=== PATIENT | male | born 1950 | race Caucasian/White ===

== ENCOUNTER 2020-02-04 06:44 | Outpatient (CLI) | payer MEDICARE, BC, OTHER ==
[2020-02-04 13:28] LABS: #Basophils 0.1 thou/uL (0.0-0.2); #Eosinphils 0.2 thou/uL (0.0-0.7); #Lymphocytes 1.1 thou/uL (1.20-3.40); #Monocytes 0.8 thou/uL (0.11-0.59); #Neutrophils 3.9 thou/uL (1.40-6.50); %Basophils 1.3 % (0.0-1.0); %Eosinophils 3.3 % (0.0-10.0); %Lymphocytes 17.9 % (21.0-51.0); %Monocytes 12.9 % (0.0-10.0); %Neutrophils 64.6 % (42.0-75.0); Hemoglobin 13.4 g/dL (14.0-18.0); Mean Corpuscular HGB CONC 33.3 g/dL (32.0-36.0); Mean Corpuscular Hemoglobin 30.9 pg (27.0-31.0); Mean Corpuscular Volume 92.8 fL (78.0-98.0); Mean Platelet Volume 8.9 fL (7.4-10.4); Platelet Count 147 thou/uL (130-400); RBC Distribution Width 13.5 % (11.5-14.5); Red Blood Cell (RBC) Count 4.34 mill/uL (4.70-6.10)
[2020-02-04 13:33] LABS: INR-International Normal Ratio 0.9; Prothrombin Time 12.6 sec (12.0-14.7)
[2020-02-04 13:40] LABS: Anion Gap 11 mmol/L (10-20); BUN (Urea Nitrogen) 12 mg/dL (8.4-25.7); Calc. Creatinine Clearance 0 mL/min (70-130); Calcium 9.2 mg/dL (7.8-10.44); Carbon Dioxide 28 mmol/L (23-31); Chloride 100 mmol/L (98-107); Estimated GFR-MDRD 70; Glucose 116 mg/dL (80-115); Potassium 4.8 mmol/L (3.5-5.1); Sodium 134 mmol/L (136-145)
--- NOTE | 2020-02-04 13:50 | RAD ---
TWO VIEWS OF THE CHEST: 02/04/20 COMPARISON: None. HISTORY: Preoperative radiograph. FINDINGS: Two views of the chest show normal sized cardiomediastinal silhouette. There is no evidence of consol idation, mass, or pleural effusion. The bones are unremarkable. IMPRESSION: No evidence of acute cardiopulmonary disease. POS: EAA
[2020-02-05 12:15] LABS: SARS-CoV-2 MS2 Positive; SARS-CoV-2 N Gene Negative; SARS-CoV-2 S Gene Negative; SARS-CoV-2 orf1ab Negative
--- NOTE | 2020-02-07 11:47 | EKG ---
Test Reason : PREOP Blood Pressure : / mmHG Vent. Rate : 089 BPM Atrial Rate : 089 BPM P-R Int : 188 ms QRS Dur : 086 ms QT Int : 358 ms P-R-T Axes : 053 016 019 degrees QTc Int : 435 ms Sinus rhythm with Premature atrial complexes Possible Left atrial enlargement Borderline ECG Confirmed by HALLIE TEE ([id number]) on 02/07/2020 11:47:11 AM Referred By: MILE Confirmed By:HALLIE TEE
== END 2020-02-04 06:45 | disposition home or self-care (01) ==
LOC: LABBT 06:44
PROVIDERS: ATTEND Orthopaedic Surgery
DX: Z01.818 Encounter for other preprocedural examination (principal); Z11.59 Encounter for screening for other viral diseases; M16.11 Unilateral primary osteoarthritis, right hip
CPT/HCPCS: 71046; 80048; 85025; 85610; 87081; 93005; U0003; 87635; 93010

== ENCOUNTER 2020-02-04 10:15 | Inpatient (IN) | payer MEDICARE, BC ==
[2020-02-03 10:53] VITALS: BMI 27.1
[2020-02-08] MEDS ORDERED: Sodium Chloride 0.9% 100 ML ONE (07:26)
[2020-02-08] MEDS ORDERED: Tranexamic Acid 1,000 MG/10 ML VIAL ONE (07:26)
[2020-02-08] MEDS ORDERED: Vancomycin 1.5 GRAM/300 ML BAG ONE (07:27)
[2020-02-08] MEDS ORDERED: Fentanyl 100 MCG/2 ML VIAL ONE ×3 (07:51→10:15)
[2020-02-08] MEDS ORDERED: Midazolam HCl 2 mg/2 ml Vial ONE (07:51)
[2020-02-08] MEDS ORDERED: Acetaminophen 500 MG TAB PO PRN (09:08)
[2020-02-08] MEDS ORDERED: diphenhydrAMINE 50 MG/ML VIAL IM PRN (09:15)
[2020-02-08] MEDS ORDERED: diphenhydrAMINE 50 MG/ML VIAL IVP PRN (09:15)
[2020-02-08] MEDS ORDERED: Naloxone HCl 0.4 mg/ml Vial IV PRN (09:15)
[2020-02-08] MEDS ORDERED: Zolpidem Tartrate 5 MG TAB PO PRN (09:15)
[2020-02-08] MEDS ORDERED: Naloxone HCl 0.4 mg/ml Vial IVP PRN (09:15)
[2020-02-08] MEDS ORDERED: Bupivacaine 0.25% 10 ML VIAL EPIDURAL PRN (09:15)
[2020-02-08] MEDS ORDERED: HYDROcodone/Acetaminophen 5/325 mg Tablet PO PRN ×2 (09:15)
[2020-02-08] MEDS ORDERED: Ondansetron PF 4 MG/2 ML Vial IVP PRN (09:15)
[2020-02-08] MEDS ORDERED: Promethazine HCl 25 MG SUPP PR PRN (09:15)
[2020-02-08] MEDS ORDERED: Hydrocerin (Eucerin) Cream 120 gm Jar TOP PRN (09:15)
[2020-02-08] MEDS ORDERED: traMADol HCl 50 MG TAB PO PRN ×2 (09:15)
[2020-02-08] MEDS ORDERED: diphenhydrAMINE 25 MG CAP PO PRN (09:15)
[2020-02-08] MEDS ORDERED: Promethazine HCl 25 MG/ML VIAL IM PRN ×2 (09:15→09:21)
[2020-02-08] MEDS ORDERED: Promethazine HCl 25 MG/ML VIAL SLOW IVP PRN (09:21)
[2020-02-08] MEDS ORDERED: Ondansetron HCl/PF 4 MG/2 ML Vial IVP PRN (09:21)
[2020-02-08] MEDS ORDERED: Bupivacaine/Epinephrine 0.25% 30 ML VIAL ONE (10:15)
[2020-02-08] MEDS ORDERED: Ketorolac Tromethamine 30 MG/ML VIAL ONE (11:44)
[2020-02-08] MEDS ORDERED: Glycopyrrolate 0.2 MG/ML 5 ML SYRINGE ONE (11:44)
[2020-02-08] MEDS ORDERED: Dexamethasone 20 MG/5 ML VIAL ONE (11:44)
[2020-02-08] MEDS ORDERED: PHENYLEPHRINE-NS 100 MCG/ML 10 ML SYRINGE ONE (11:44)
[2020-02-08] MEDS ORDERED: Lidocaine 1.5% w/Epi 1:200K 30 ML VIAL (Epid Use) ONE (11:44)
[2020-02-08] MEDS ORDERED: Ondansetron PF 4 MG/2 ML Vial ONE (11:44)
[2020-02-08] MEDS ORDERED: PROPOFOL 200 MG/20 ML VIAL ONE (11:44)
[2020-02-08] MEDS ORDERED: Rocuronium Bromide 10 MG/ML (10ML VIAL) ONE (11:44)
[2020-02-08] MEDS ORDERED: HYDROcodone/Acetaminophen 10/325 mg Tablet PO PRN ×2 (11:45)
[2020-02-08] MEDS ORDERED: Acetaminophen 325 MG TAB PO PRN (11:45)
[2020-02-08] MEDS ORDERED: Fentanyl 100 MCG/2 ML VIAL SLOW IVP PRN (11:45)
[2020-02-08] MEDS ORDERED: Ketorolac Tromethamine 30 MG/ML VIAL IVP SCH (12:00)
--- NOTE | 2020-02-08 13:11 | OP ---
DATE OF PROCEDURE: 02/08/2020 PREOPERATIVE DIAGNOSIS: Left hip osteoarthritis. POSTOPERATIVE DIAGNOSIS: Left hip osteoarthritis. PROCEDURE PERFORMED: Left total hip arthroplasty. LEAD LOADER: Bran Lowery. ANESTHESIA: Dr. Bowen. The patient received a general with epidural. ESTIMATED BLOOD LOSS: 200 mL. TOURNIQUET TIME: None. ANTIBIOTICS: Vancomycin 1.5 g, Ancef 2 g. The patient received TXA 1 g. IMPLANTS: Favian size 60 mm hemispherical shell, an X3 10-degree poly liner, 36 mm -5 Biolox Delta ceramic head, and a size 6 Accolade II stem. COMPLICATIONS: None. HISTORY OF PRESENT ILLNESS: Mr. Velez is a 69-year-old male, who presents with left hip pain. The patient has had failed conservative measures and desired to have left total hip arthroplasty. I discussed with him the risks and benefits of surgery, pain; scar; bleeding; infection; damage to vital structures; decreased range of motion and strength; rotation, shortening, or lengthening of the limb; risk of blood clots; loss of life or limb. The patient understood the risks and benefits and elected to proceed. DESCRIPTION OF PROCEDURE: Time-out was performed designating the patient's left lower extremity as the operative site based on site, consents, and marking. After time-out, the patient was placed in a lateral position with bony prominences well padded and had an axillary roll. I made a lateral incision down through skin, down to the IT band. IT band was split. We exposed the patient's abductors. We took down just the anterior and lateral aspect, just a portion of the gluteus medius, portion of it was injured though with the broaching, it was dislocated and was torn through some of the muscle more proximally, which we repaired. We T'd the patient's capsule. We dislocated the patient's hip, cut the femoral head, placed retractors anterior and posterior, removed the acetabular labrum. We broached, we essentially reamed up, ultimately ended up with 60, impacted a [address], had good firm fixation, placed our poly liner into position posterior superior decreasing the risk of impingement/dislocation. We moved back to the neck. We had to recut the neck, and left our neck long and we broached down on the neck to ensure we had a good fit. We went from a 5 down to a 6, trialed with a 6 standard. We placed the implant into position and reduced, had no signs of impingement. He had good overall range of motion. I liked the stability, shuck. We then removed, placed our size 6, seated about a millimeter more, we ultimately went with a -5 ceramic head, reduced into place, washed, closed the capsule with 2 Vicryl, closed the gluteus medius and minimus with a #2 Vicryl and closed the rent in the muscle with #2 Vicryl, closed the IT band with 2 Vicryl, 2 Stratafix, 0 Stratafix, and 2-0 Stratafix for skin and glue. The patient will be weightbearing as tolerated, will receive perioperative antibiotics, will be admitted and will be followed in-house. Job ID: [id number] MTDD
--- NOTE | 2020-02-08 13:17 | RAD ---
Exam:One view left hip HISTORY: Arthroplasty. COMPARISON: None FINDINGS: Single image provided, uncomplicated left hip arthroplasty. Expected postoperative changes in the soft tissue. IMPRESSION: Findings compatible with uncomplicated left hip arthroplasty.
--- NOTE | 2020-02-08 13:19 | RAD ---
Exam: Single view of the pelvis HISTORY: Status post left hip arthroplasty COMPARISON: None FINDINGS: A single view the pelvis shows no evidence of acute fracture or dislocation. The patient is status post left hip arthroplasty without perihardware lucency. Air in the soft tissues is from recent surgery. Mild degenerative change is seen in the right hip. IMPRESSION: Status post left hip arthroplasty without evidence of complication.
[2020-02-08] MEDS ORDERED: CEFAZOLIN 2 GM in Premix Bag 1 BAG IVPB SCH (16:00)
[2020-02-08] MEDS: CEFAZOLIN 2 GM in Premix Bag 1 BAG IVPB SCH (18:35)
[2020-02-08] MEDS ORDERED: Vancomycin 1.5 GRAM/300 ML BAG 1.5 GM in Premix Bag 1 BAG IVPB SCH (20:00)
[2020-02-08] MEDS: Aspirin 81 mg Enteric Coated Tablet PO SCH (20:56)
[2020-02-08] MEDS: Ketorolac Tromethamine 30 MG/ML VIAL IVP SCH (20:57)
[2020-02-08] MEDS: Sodium Chloride 0.9% 1,000 ML IV SCH ×2 (21:04→22:15)
[2020-02-09] MEDS: CEFAZOLIN 2 GM in Premix Bag 1 BAG IVPB SCH (02:53)
[2020-02-09] MEDS: Ketorolac Tromethamine 30 MG/ML VIAL IVP SCH ×5 (02:58→21:27)
[2020-02-09] MEDS: Sodium Chloride 0.9% 1,000 ML IV SCH ×3 (04:08→20:43)
[2020-02-09] MEDS: fentaNYL Citrate/PF 500 MCG, Bupivacaine 10 ML in Sodium Chloride 0.9% 80 ML EPIDURAL SCH ×2 (05:01→20:33)
[2020-02-09 06:05] LABS: Hemoglobin 10.9 g/dL (14.0-18.0); Mean Corpuscular HGB CONC 32.3 g/dL (32.0-36.0); Mean Corpuscular Hemoglobin 30.5 pg (27.0-31.0); Mean Corpuscular Volume 94.6 fL (78.0-98.0); Mean Platelet Volume 8.5 fL (7.4-10.4); Platelet Count 108 thou/uL (130-400); RBC Distribution Width 13.3 % (11.5-14.5); Red Blood Cell (RBC) Count 3.57 mill/uL (4.70-6.10); White Blood Cell (WBC) Count 7.3 thou/uL (4.8-10.8)
[2020-02-09] MEDS: Ferrous Gluconate 324 MG TAB PO SCH ×2 (08:40→18:09)
[2020-02-09] MEDS: Aspirin 81 mg Enteric Coated Tablet PO SCH ×2 (08:40→20:35)
[2020-02-09] MEDS: Senokot S 8.6-50 MG TAB PO SCH ×2 (08:41→20:34)
[2020-02-09] MEDS: Multivitamin W/ Minerals 1 TAB PO SCH (08:42)
[2020-02-09] MEDS: Lisinopril 5 MG TAB PO SCH (08:42)
[2020-02-10 06:14] LABS: Hemoglobin 9.4 g/dL (14.0-18.0); Mean Corpuscular HGB CONC 32.4 g/dL (32.0-36.0); Mean Corpuscular Hemoglobin 30.1 pg (27.0-31.0); Mean Platelet Volume 8.6 fL (7.4-10.4); Platelet Count 91 thou/uL (130-400); RBC Distribution Width 13.2 % (11.5-14.5); Red Blood Cell (RBC) Count 3.12 mill/uL (4.70-6.10); White Blood Cell (WBC) Count 8.3 thou/uL (4.8-10.8)
[2020-02-10] MEDS ORDERED: HYDROcodone/Acetaminophen 10/325 mg Tablet PO PRN ×2 (09:47→09:48)
[2020-02-10] MEDS: Senokot S 8.6-50 MG TAB PO SCH (10:29)
[2020-02-10] MEDS: Aspirin 81 mg Enteric Coated Tablet PO SCH (10:29)
[2020-02-10] MEDS: Multivitamin W/ Minerals 1 TAB PO SCH (10:30)
[2020-02-10] MEDS: Ketorolac Tromethamine 30 MG/ML VIAL IVP SCH (10:34)
[2020-02-10] MEDS: Ferrous Gluconate 324 MG TAB PO SCH (10:42)
[2020-02-10] MEDS: Lisinopril 5 MG TAB PO SCH (10:42)
[2020-02-10 12:12] VITALS: BP 109/63; TEMP 99.2
== END 2020-02-10 14:45 | disposition home or self-care (01) | DRG 470 ==
LOC: SURG A 02-08 06:58
PROVIDERS: ADMIT Orthopaedic Surgery; ATTEND Orthopaedic Surgery
PROC: 0SRB04Z Replacement of Left Hip Joint with Ceramic on Polyethylene Synthetic Substitute, Open Approach (ICD-10-PCS; principal; 2020-02-08)
DX: M16.12 Unilateral primary osteoarthritis, left hip (principal); I10 Essential (primary) hypertension; F10.10 Alcohol abuse, uncomplicated; Z98.49 Cataract extraction status, unspecified eye
CPT/HCPCS: 36415; 72170; 85027; J0690; J1100; J1885; J2001; J2250; J2405; J2704; J3010; J3370; J3490